=== PATIENT | female | born 1955 | race African-American/Black ===

== ENCOUNTER 2017-11-13 13:54 | Inpatient (IN) | payer MEDICAID ==
[~2017-11-13] VITALS: Ht 162.6 cm; Wt 50.8 kg
[~2017-11-13 13:54] MED LIST: AMLO10TA80 PO; CINA30 PO; CLON0.2T PO; METO-539 PO; MYCO360T3 PO; PRED5TAB48 PO; TACR1CAP22 PO; TACROLIMUS PO
[2017-11-13] MEDS ORDERED: SODIUM CHLORIDE 0.9% 1,000 ML IV ONE (17:21)
[2017-11-13] MEDS ORDERED: ONDANSETRON HCL 4MG/2ML INJ IV STA (17:21)
[2017-11-13] MEDS ORDERED: MORPHINE SULFATE 4 MG/ML CPJ (NOT FOR IM USE) IV STA (17:21)
[2017-11-13] MEDS ORDERED: MAGNESIUM/ALUMINUM HYDROXIDE/SIMETHICONE 30ML UDC PO ONE (17:30)
[2017-11-13] MEDS ORDERED: VISCOUS LIDOCAINE 2% 15 ML UDC PO ONE (17:30)
[2017-11-13] MEDS ORDERED: FAMOTIDINE 20MG/2ML VIAL IV ONE (17:30)
[2017-11-13 18:15] LABS: BASOPHILS % 0.2 % (0.0-2.0); EOSINOPHILS % 0.1 % (0.0-5.0); HEMATOCRIT. 29.2 % (36.0-48.0); HEMOGLOBIN. 9.4 g/dL (12.0-16.0); LYMPHOCYTES % 11.9 % (20.0-50.0); MEAN CORPUSCULAR HEMOGLOBIN 26.9 pg (28.0-32.0); MEAN CORPUSCULAR VOLUME 83.9 fL (81.0-99.0); MEAN PLATELET VOLUME 10.3 fl (7.4-10.4); MONOCYTES % 8.7 % (2.0-8.0); NEUTROPHILS % 79.1 % (40.0-76.0); PLATELET 226 x1000/uL (130-400); RED BLOOD CELL COUNT 3.48 mill/uL (4.2-5.4); RED CELL DISTRIBUTION WIDTH 14.5 % (11.6-14.6)
[2017-11-13 18:24] LABS: CHLORIDE 97 mEq/L (98-107); INR 1.1; PROTHROMBIN TIME 11.2 sec (9.1-11.1)
[2017-11-13] MEDS ORDERED: PANTOPRAZOLE SODIUM 40 MG/VIAL IV ONE (19:15)
[2017-11-13] MEDS ORDERED: DIPHENHYDRAMINE 50MG/ML VIAL IV PRN (19:45)
[2017-11-13] MEDS ORDERED: ONDANSETRON HCL 4MG/2ML INJ IV PRN (19:45)
[2017-11-13] MEDS: HYDROCODONE/ACETAMINOPHEN 5/325MG TABLET PO PRN (20:49)
[2017-11-14 00:17] LABS: CLARITY URINE CLEAR (CLEAR); COLOR URINE YELLOW (YELLOW); KETONES URINE NEGATIVE (NEGATIVE); LEUKOCYTE ESTERASE URINE TRACE (NEGATIVE); NITRITE URINE NEGATIVE (NEGATIVE); OCCULT BLOOD URINE NEGATIVE (NEGATIVE); PROTEIN URINE NEGATIVE (NEGATIVE); SPECIFIC GRAVITY URINE 1.009 (1.005-1.030); UROBILINOGEN URINE 0.2 E.U./dL (0.2-1.0)
[2017-11-14 03:00] VITALS: BP 134/65
[2017-11-14] MEDS ORDERED: ACETAMINOPHEN 325MG TABLET PO PRN (03:03)
[2017-11-14] MEDS ORDERED: MAGNESIUM/ALUMINUM HYDROXIDE/SIMETHICONE 30ML UDC PO PRN (03:03)
[2017-11-14] MEDS ORDERED: NA PHOS,M-B/NA PHOS,DI-BA ENEMA 118ML PR PRN (03:04)
[2017-11-14] MEDS ORDERED: CLONIDINE 0.1MG TABLET PO PRN (03:04)
[2017-11-14] MEDS ORDERED: IPRATROPIUM/ALBUTEROL 0.5-3(2.5)MG/3ML NEB INH PRN (03:06)
[2017-11-14] MEDS ORDERED: GUAIFENESIN 200MG/10ML SUGAR FREE UDC PO PRN (03:06)
[2017-11-14] MEDS ORDERED: LORAZEPAM 2MG/ML CPJ IV PRN (03:06)
[2017-11-14] MEDS ORDERED: CLON0.1T PO (03:53)
[2017-11-14] MEDS: HYDROMORPHONE HCL/PF 2MG/ML CPJ IV PRN ×2 (04:13→11:27)
[2017-11-14] MEDS: SODIUM CHLORIDE 0.45% 1,000 ML IV SCH (04:13)
[2017-11-14 07:07] LABS: HEMATOCRIT. 24.1 % (36.0-48.0); HEMOGLOBIN. 8.3 g/dL (12.0-16.0); MEAN CORPUSCULAR HEMOGLOBIN 28.6 pg (28.0-32.0); MEAN CORPUSCULAR VOLUME 83.5 fL (81.0-99.0); MEAN PLATELET VOLUME 10.3 fl (7.4-10.4); PLATELET 161 x1000/uL (130-400); RED BLOOD CELL COUNT 2.89 mill/uL (4.2-5.4); RED CELL DISTRIBUTION WIDTH 14.3 % (11.6-14.6)
[2017-11-14 07:14] LABS: CHLORIDE 101 mEq/L (98-107)
[2017-11-14 07:27] LABS: LDL CHOLESTEROL 68 mg/dL (5-100)
[2017-11-14 07:29] LABS: HDL CHOLESTEROL 51 mg/dL (40-59); T4 FREE 1.16 ng/dL (0.76-1.46)
[2017-11-14 08:00] VITALS: BP 93/48
[2017-11-14 09:48] LABS: PLATELET ESTIMATE NORMAL
[2017-11-14 12:00] VITALS: BP 101/56
[2017-11-14] MEDS ORDERED: INFLUENZA VIRUS VACCINE(AFLURIA) 0.5ML SYR IM ONE (12:00)
[2017-11-14 14:15] LABS: HEPATITIS B SURFACE ANTIGEN NEGATIVE
[2017-11-14 14:43] LABS: HEPATITIS B CORE AB IGM NEGATIVE
[2017-11-14 14:45] LABS: HEPATITIS A AB IGM NEGATIVE (NEGATIVE)
[2017-11-14 15:40] LABS: CREATINE KINASE 26 IU/L (26-192)
[2017-11-14 15:41] LABS: CREATINE KINASE MB FRACTION < 1.0 ng/mL (0.5-3.6)
[2017-11-14 16:00] VITALS: BP 98/56
[2017-11-14] MEDS: DOCUSATE SODIUM 100MG CAPSULE PO PRN (16:13)
[2017-11-14 20:00] VITALS: BP 95/47
[2017-11-14] MEDS: PANTOPRAZOLE SODIUM 40 MG/VIAL IV SCH (20:38)
[2017-11-14] MEDS ORDERED: TACROLIMUS 3 MG PO SCH (21:30)
[2017-11-14] MEDS ORDERED: MYCOPHENOLATE SODIUM 360 MG PO SCH (21:30)
[2017-11-14] MEDS: CINACALCET HCL 30MG TABLET PO SCH (23:25)
[2017-11-14] MEDS: MYCOPHENOLIC ACID 360 MG PO SCH (23:31)
[2017-11-14 23:43] LABS: CREATINE KINASE 27 IU/L (26-192)
[2017-11-14 23:44] LABS: CREATINE KINASE MB FRACTION < 1.0 ng/mL (0.5-3.6)
[2017-11-15] VITALS (7 sets, daily range): BP systolic 100–133; BP diastolic 55–79
[2017-11-15] MEDS: TACROLIMUS 1MG CAPSULE PO SCH ×4 (00:04→18:21)
[2017-11-15] MEDS: HYDROCODONE/ACETAMINOPHEN 5/325MG TABLET PO PRN (00:14)
[2017-11-15 07:32] LABS: INR 1.1; PARTIAL THROMBOPLASTIN TIME 28.9 sec (23.4-31.0); PROTHROMBIN TIME 11.1 sec (9.1-11.1)
[2017-11-15 07:36] LABS: BASOPHILS % 0.4 % (0.0-2.0); HEMATOCRIT. 25.4 % (36.0-48.0); HEMOGLOBIN. 8.5 g/dL (12.0-16.0); LYMPHOCYTES % 9.7 % (20.0-50.0); MEAN CORPUSCULAR VOLUME 83.9 fL (81.0-99.0); MEAN PLATELET VOLUME 10.1 fl (7.4-10.4); MONOCYTES % 14.8 % (2.0-8.0); NEUTROPHILS % 74.1 % (40.0-76.0); PLATELET 164 x1000/uL (130-400); RED BLOOD CELL COUNT 3.03 mill/uL (4.2-5.4); RED CELL DISTRIBUTION WIDTH 14.3 % (11.6-14.6)
[2017-11-15 07:56] LABS: CHLORIDE 98 mEq/L (98-107)
[2017-11-15] MEDS: HYDROMORPHONE HCL/PF 2MG/ML CPJ IV PRN ×3 (08:10→23:16)
[2017-11-15 08:11] LABS: CREATINE KINASE 22 IU/L (26-192)
[2017-11-15 08:14] LABS: CREATINE KINASE MB FRACTION < 1.0 ng/mL (0.5-3.6)
[2017-11-15] MEDS: PREDNISONE 5MG TABLET PO SCH ×2 (09:00→11:14)
[2017-11-15] MEDS ORDERED: MEDICATION NOT ON FORMULARY EA (Prednisone 5 MG) PO SCH (09:00)
[2017-11-15] MEDS: MYCOPHENOLIC ACID 360 MG PO SCH ×3 (09:00→18:21)
[2017-11-15] MEDS: AMLODIPINE 10MG TABLET PO SCH ×2 (09:00→11:14)
[2017-11-15] MEDS ORDERED: MEDICATION NOT ON FORMULARY EA (Metoprolol Tartrate 50 MG) PO SCH (09:00)
[2017-11-15] MEDS: METOPROLOL TARTRATE 50MG TABLET PO SCH ×3 (09:00→20:25)
[2017-11-15] MEDS: PANTOPRAZOLE SODIUM 40 MG/VIAL IV SCH ×2 (09:17→18:20)
[2017-11-15] MEDS: SODIUM CHLORIDE 0.45% 1,000 ML IV SCH (09:57)
[2017-11-15] MEDS ORDERED: SODIUM CHLORIDE 0.9% 10ML VIAL ONE (14:21)
[2017-11-15] MEDS ORDERED: SIMETHICONE 40 MG/0.6 ML 30ML ONE (15:47)
[2017-11-15] MEDS ORDERED: MIDAZOLAM HCL 5 MG/5 ML VIAL ONE (15:47)
[2017-11-15] MEDS ORDERED: FENTANYL CITRATE/PF 50MCG/ML 2ML VIAL ONE (15:48)
[2017-11-15] MEDS ORDERED: MIDAZOLAM HCL 2 MG/2 ML VIAL IV PRN (16:00)
[2017-11-15] MEDS ORDERED: FENTANYL CITRATE/PF 50MCG/ML 2ML VIAL IV PRN (16:01)
[2017-11-15] MEDS: CINACALCET HCL 30MG TABLET PO SCH (20:24)
[2017-11-16] VITALS (17 sets, daily range): BP systolic 85–123; BP diastolic 53–78
[2017-11-16] MEDS: HYDROMORPHONE HCL/PF 2MG/ML CPJ IV PRN ×2 (06:30→14:30)
[2017-11-16 07:05] LABS: HEMATOCRIT 26.2 % (36.0-48.0); HEMOGLOBIN 8.7 g/dL (12.0-16.0); MEAN CORPUSCULAR HEMOGLOBIN 27.5 pg (28.0-32.0); PLATELET 212 x1000/uL (130-400); RED BLOOD CELL COUNT 3.16 mill/uL (4.2-5.4); RED CELL DISTRIBUTION WIDTH 14.6 % (11.6-14.6)
[2017-11-16] MEDS ORDERED: FENTANYL CITRATE/PF 50MCG/ML 2ML VIAL ONE (08:29)
[2017-11-16] MEDS ORDERED: LIDOCAINE HCL 1% 20ML VIAL (Pyxis) INJ ONE (08:39)
[2017-11-16] MEDS ORDERED: SODIUM BICARBONATE 4% (2.4MEQ) 5ML VIAL IV ONE (08:39)
[2017-11-16] MEDS: MYCOPHENOLIC ACID 360 MG PO SCH ×2 (09:00→17:00)
[2017-11-16] MEDS: TACROLIMUS 1MG CAPSULE PO SCH ×2 (09:00→17:00)
[2017-11-16] MEDS ORDERED: FENTANYL CITRATE/PF 50MCG/ML 2ML VIAL IV ONE (09:45)
[2017-11-16 13:26] LABS: HEMATOCRIT 25.7 % (36.0-48.0); HEMOGLOBIN 8.4 g/dL (12.0-16.0)
[2017-11-16] MEDS: AMLODIPINE 10MG TABLET PO SCH (14:26)
[2017-11-16] MEDS: METOPROLOL TARTRATE 50MG TABLET PO SCH ×2 (14:26→21:00)
[2017-11-16] MEDS: DOCUSATE SODIUM 100MG CAPSULE PO PRN ×2 (14:27→18:58)
[2017-11-16] MEDS: PREDNISONE 5MG TABLET PO SCH (14:34)
[2017-11-16] MEDS: CINACALCET HCL 30MG TABLET PO SCH (21:47)
[2017-11-17] VITALS: BP 114/67
[2017-11-17] MEDS: SODIUM CHLORIDE 0.45% 1,000 ML IV SCH (00:29)
[2017-11-17] MEDS: HYDROMORPHONE HCL/PF 2MG/ML CPJ IV PRN ×3 (00:36→12:52)
[2017-11-17 04:00] VITALS: BP 101/59
[2017-11-17 06:33] LABS: HEMATOCRIT 26.8 % (36.0-48.0); HEMOGLOBIN 8.8 g/dL (12.0-16.0); MEAN CORPUSCULAR HEMOGLOBIN 27.5 pg (28.0-32.0); PLATELET 214 x1000/uL (130-400); RED BLOOD CELL COUNT 3.19 mill/uL (4.2-5.4); RED CELL DISTRIBUTION WIDTH 14.6 % (11.6-14.6)
[2017-11-17 08:07] VITALS: BP 104/63
[2017-11-17] MEDS: MYCOPHENOLIC ACID 360 MG PO SCH (09:00)
[2017-11-17] MEDS: TACROLIMUS 1MG CAPSULE PO SCH (09:00)
[2017-11-17] MEDS: METOPROLOL TARTRATE 50MG TABLET PO SCH (10:13)
[2017-11-17] MEDS: PREDNISONE 5MG TABLET PO SCH (10:13)
[2017-11-17] MEDS: AMLODIPINE 10MG TABLET PO SCH (10:13)
[2017-11-17] MEDS: DOCUSATE SODIUM 100MG CAPSULE PO PRN (10:13)
[2017-11-17 12:00] VITALS: BP 92/52
[2017-11-17 12:52] VITALS: BP 104/63
== END 2017-11-17 15:07 | disposition home or self-care (01) | DRG 281 ==
LOC: ER 16:10 → 7WST 19:36 → EDBEDREQTM 11-14 00:56 → EDBEDREQSVC 11-14 00:56 → EDBEDREQ 11-14 00:56 → ENRESERV 11-14 01:35 → 7WST 11-14 04:01
PROVIDERS: ADMIT Internal Medicine; ATTEND Internal Medicine
PROC: 0DB68ZX Excision of Stomach, Via Natural or Artificial Opening Endoscopic, Diagnostic (ICD-10-PCS; principal; 2017-11-15 15:30)
PROC: 0FB03ZX Excision of Liver, Percutaneous Approach, Diagnostic (ICD-10-PCS; 2017-11-16)
DX: C78.7 Secondary malignant neoplasm of liver and intrahepatic bile duct (principal); I12.0 Hypertensive chronic kidney disease with stage 5 chronic kidney disease or end stage renal disease; K25.4 Chronic or unspecified gastric ulcer with hemorrhage; E44.1 Mild protein-calorie malnutrition; Z94.0 Kidney transplant status; N18.5 Chronic kidney disease, stage 5; D64.9 Anemia, unspecified; K63.9 Disease of intestine, unspecified; E78.5 Hyperlipidemia, unspecified
CPT/HCPCS: 36415; 71045; 74176; 76705; 76942; 80048; 80053; 80061; 81003; 82105; 82378; 82550; 82553; 83036; 83690; 83880; 83970; 84439; 84443; 84484; 85014; 85018; 85025; 85027; 85379; 85610; 85730; 86301; 86705; 86709; 86803; 87340; 88305; 88307; 88312; 88313; 90686; 93005; 93306; 99285; A4216; C9113; J1170; J2250; J2270; J2405; J3010; J3490; J7030; J7050; J7512